=== PATIENT | female | born 1975 | race Caucasian/White ===

== ENCOUNTER 2017-03-15 09:12 | Inpatient (IN) ==
[2017-03-15] MEDS ORDERED: LIDOCAINE 1% (10mg/ml) 2mL INJ PF SDV ID ONE (09:34)
[2017-03-15] MEDS ORDERED: MIDAZOLAM 2mg/2ml INJECTION ONE (10:29)
[2017-03-15] MEDS ORDERED: ROCURONIUM 50 MG/5 ML INJECTION IVP ONE ×2 (10:29→11:49)
[2017-03-15] MEDS ORDERED: SUGAMMADEX 200mg/2ml INJECTION IVP ONE (10:29)
[2017-03-15] MEDS ORDERED: ONDANSETRON 4 MG/2 ML INJECTION ONE (10:29)
[2017-03-15] MEDS ORDERED: GLYCOPYRROLATE 0.4 MG/2 ML INJECTION ONE (10:29)
[2017-03-15] MEDS ORDERED: FentaNYL 250 MCG/5 ML INJECTION ONE (10:29)
[2017-03-15] MEDS ORDERED: PROPOFOL 20 ML ONE (10:30)
[2017-03-15] MEDS ORDERED: LIDOCAINE 2% (100mg/5mL) PF 5ml vl ONE (10:30)
[2017-03-15] MEDS: LR 1,000 ML IV SCH ×3 (10:40→18:35)
--- NOTE | 2017-03-15 10:41 | Anesthesia Preoperative Report ---
Anesthesia Preoperative Record - Date and Time Date: 03/15/17 NPO Since Date: 03/14/17 NPO Since Time: 00:00 Allergies/Adverse Reactions: Allergies Allergy/AdvReac Type Severity Reaction Status Date / Time No Known Allergies Allergy Verified 03/15/17 10:03 - Vital Signs Vital Signs: Temp Pulse BP Pulse Ox 98.2 F 89 147/77 H 96 03/15/17 09:39 03/15/17 09:39 03/15/17 09:39 03/15/17 09:39 Height and Weight: Height 1.7 m Weight 109.5 kg Body Mass Index 37.8 - Medications Inpatient Medications: Current Medications Lactated Ringer's (Lactated Ringers) 1,000 mls @ 100 mls/hr IV .Q10H LEON Home Medications: Home Medications Medication Instructions Recorded Confirmed Type Acetaminophen [Non-Aspirin Pain 1 - 2 tab PO 6XD PRN 03/14/17 03/15/17 History Relief] Buspirone [Buspar] 10 mg PO DAILY 03/14/17 03/15/17 History Melatonin/Pyridoxine HCl (B6) 1 each PO HS 03/14/17 03/15/17 History [Melatonin 3 mg Tablet] Meloxicam 15 mg PO DAILY 03/14/17 03/15/17 History Montelukast [Singulair] 10 mg PO HS 03/14/17 03/15/17 History Multivitamin [One Daily 1 each PO DAILY 03/14/17 03/15/17 History Multivitamin] PARoxetine HCl [Paxil Cr] 2 tab PO DAILY 03/14/17 03/15/17 History - Medical History Cardiovascular: Reports: Hypertension (preop) Gastrointestional: Reports: Morbid Obesity (obese) - Surgical History HEENT Surgeries: Reports: Nose Surgery (sinus surgery-right side), Other (6 teeth pulled) GI Surgery/Treatments: Reports: Appendectomy, Cholecystectomy Musculoskeletal Surgery/Tx: Reports: Carpal Tunnel Release (janelle.) - Social History Smoking Status: Never smoker Hx Chewing Tobacco Use: No Second Hand Exposure: No - Pertinent Findings Laboratory: CBC and BMP 03/15/17 09:47 03/15/17 09:47 BMP 03/15/17 09:47 Sodium 142 Potassium 4.3 Chloride 104 Carbon Dioxide 26 BUN 10.0 Creatinine 0.6 L Glucose 94 Calcium 9.1 - Physical Exam Respiratory Exam: Present: lungs clear Cardiovascular Exam: Present: regular rate and rhythm - Airway Assessment Mallampati Score: III TMD: 3 Fingerbreadths Neck Extension: good Teeth: chipped teeth/crowns Overall Assessment: no airway concerns - ASA ASA Score: 2 - Plan Plan: GA with TAP block Anesthesia: General Inhalation Gases Regional/Trunk Block: Transverse Abdominal Plane - Discussion Discussion: Discussed risks/options/alternatives of anesthesia and questions answered. Patient consents. Nursing pain assessment noted. Attestation Statement: Prior to the delivery of any anesthetic medication, I examined the patient, developed the plan, obtained the patient's consent and discussed the risk and benefits of the procedure with the patient/guardian. - Additional Information Seen by Anesthesia: Yes
[2017-03-15] MEDS ORDERED: FAMOTIDINE PREMIX 20 MG/50 ML BAG IV ONE (11:10)
[2017-03-15] MEDS: CEFOXITIN 2 GM in NS 100 ML IV ONE (11:19)
[2017-03-15] MEDS ORDERED: ALBUTEROL HFA INHALER 8gm ORAL INH ONE (12:09)
[2017-03-15] MEDS ORDERED: PHENYLEPHRINE INJ 10 MG/ML VIAL ONE (12:49)
[2017-03-15] MEDS ORDERED: EPHEDRINE 50mg/ml INJECTION ONE (12:49)
[2017-03-15] MEDS ORDERED: DEXAMETHASONE 4 MG/ML INJECTION ONE (12:49)
[2017-03-15] MEDS ORDERED: HYDROMORPHONE 2 MG/ML INJECTION IVP PRN (12:50)
[2017-03-15] MEDS ORDERED: SCOPOLAMINE 1.5 MG PATCH TD ONE (12:51)
[2017-03-15] MEDS ORDERED: HYDROMORPHONE 2 MG/ML INJECTION ONE (13:09)
[2017-03-15] MEDS ORDERED: CEFOXITIN 1 GM ONE (14:13)
[2017-03-15] MEDS ORDERED: CEFOXITIN IV ONE (14:30)
[2017-03-15] MEDS ORDERED: NS IV ONE (14:30)
--- NOTE | 2017-03-15 14:45 | OB/GYN Procedure Note ---
WELFARE INTERVIEWER Operative Note Date of Operation: 03/15/17 Preoperative Diagnosis: Pelvic Pain Enlarged fibroid uterus Postoperative Diagnosis: Same as Preoperative - Procedure Hysterectomy: JENNA Salpingectomy: Bilateral Salpingectomy Surgeon: Annamarie Pedersen MD Ecd: Erik Plasencia MD Anesthesia Provider: Reyumndo Sanders CRNA Anesthesia Type: general Complications: None Estimated Blood Loss:: 250 cc
[2017-03-15] MEDS ORDERED: ONDANSETRON 4 MG/2 ML INJECTION IVP PRN (14:46)
--- NOTE | 2017-03-15 14:54 | Operative Note ---
Operative Report-Blank Operative Report: Abdominal Hysterectomy Preoperative Diagnosis: 1. Symptomatic uterine fibroids 2. Enlarged uterus Postoperative Diagnosis: 1. Same as pre-operative diagnosis Operation Performed: 1. Examination under anesthesia 2. Total abdominal hysterectomy 3. Bilateral salpingectomy 4. Mirena intra-uterine device removal Surgeon: Annamarie Pedersen MD Recreation Facility Attendant: Erik Plasencia MD Anesthesia: general endotracheal anesthesia Estimated Blood Loss: 250 cc Intraoperative IVF: 1800 cc Urine Output: 400 cc Drains: robison catheter to gravity Pathology Specimens: 1. Bilateral fallopian tubes 2. Uterine corpus 3. Uterine cervix 4. Mirena IUD Complications: none Disposition and Condition: to the PACU in good condition then admitted to the hospital Findings: 1. 15 week size, mobile, diffusely enlarged uterus on EUA 2. Fibroid uterus with (submucosal) fibroid at laparotomy 3. Normal right and left adnexa, 4. Appendix and gallbladder surgically absent from prior procedures 5. Palpable normal liver and kidneys Statement of Medical Necessity: 41 year old A1 with a history of symptomatic uterine fibroids and menorrhagia who had previously been managed with medical therapy through Mirena intra-uterine device. Her bleeding symptoms were well controlled, however, patient continued to have bulk symptoms. The procedural risks, benefits, indications and alternatives were reviewed with the patient. She desired definitive surgical management and declined further medical management of her condition. Description of Operation: After obtaining informed consent, the patient was taken to the operating room where satisfactory general endotracheal anesthesia was established. The patient was placed in a supine position insuring proper positioning and cushioning to avoid injury. An examination under anesthesia was performed with the findings noted above. She was prepped and draped in the usual sterile fashion. A robison catheter was placed. A Pfannenstiel incision was made from 3 cm above the pubic symphysis and carried down to the fascia with the scalpel. Hemostasis was accomplished using Bovie cautery. The fascia was incised in the midline and the incision extended laterally using Goodwin scissors. The rectus muscles were in the midline. The peritoneum was identified, elevated with hemostats and sharply entered. The peritoneal incision was extended superiorly and inferiorly down to the dome of the bladder using Metzenbaum scissors. The peritoneal cavity was explored with the findings noted above. An Billy - Golden retractor was placed and the bowel was packed into the upper abdomen using four moist laparotomy sponges. Two Pean clamps were used to grasp the uterine cornua for retraction. The right round ligament was transfixed with 0 Vicryl suture and incised using Bovie cautery. The retroperitoneal space was entered and the broad ligament incised posteriorly. The space was dissected bluntly and the ureter identified. With the ureter well out of the operative field, a window was made in the posterior leaf of the broad ligament under the utero-ovarian ligament. A Zeppelin clamp was placed across the utero-ovarian ligament and fallopian tube which were transected and doubly ligated with a free-tie and fore -and-aft stitch of 0 Vicryl suture. The pedicle was hemostatic. The anterior leaf of the broad ligament was incised anteriorly along the bladder reflection to the midline to create the bladder flap. The bladder was bluntly dissected off the lower uterine segment and cervix. The same procedure beginning with identification and incision of the round ligament was performed on the contra-lateral side. With the ureter well out of the operative field, a window was made in the posterior leaf of broad ligament inferior to the utero-ovarian ligament which was clamped with a Zepellin clamp and transected. The pedicle was doubly ligated with a free-tie and [id number] stitch of 0 Vicryl suture and was hemostatic. Care was taken to free the fallopian tubes on each side to allow for concurrent salpingectomy. The uterine vessels bilaterally were skeletonized, clamped with curved Zaire clamps, back-clamped with Pean clamps, transected and suture ligated with 0 Vicryl suture. Hemostasis was noted. Straight Zaire clamps were used to serially clamp the parametrial tissue bilaterally proceeding inferiorly. All pedicles were transected and suture ligated in a Zaire fashion with 0 Vicryl suture. Care was taken to incorporate the cardinal and uterosacral ligaments. Curved Zaire clamps were placed across the vagina just inferior to the external os of the cervix and the specimen was excised using Federico scissors. The cervix was intact, the Mirena IUD was noted to be inside the cervix and the specimens were sent to pathology. A 0 Vicryl [id number] suture was placed in the mid-cuff. The cuff was closed with separate 0 Vicryl sutures in a bilateral whip stitch over the clamps which were then removed and the sutures cinched tight. The vaginal cuff angles were closed with two separate Hoffmeister stitches of 0 Vicryl suture. Hemostasis was noted. The peritoneal cavity was copiously irrigated with warm saline. All pedicles were re-examined and remained hemostatic. The Billy Golden retractor and the four moist laparotomy sponges were removed. Counts were noted to be correct. The fascia was closed in a running fashion with two separate 0 Vicryl sutures to the midpoint. The subcutaneous tissue was irrigated and rendered hemostatic with the Bovie cautery and re-approximated with 3-0 Vicryl suture. The skin was closed 4-0 Monocryl in subcuticular fashion and a sterile dressing applied. The patient was returned to the dorsal supine position, extubated without difficulty and taken to the recovery room in stable condition. There were no anesthetic or surgical complications.
[2017-03-15] MEDS ORDERED: HYDROMORPHONE PCA 30mg/30ml VIAL IV PRN (15:47)
--- NOTE | 2017-03-15 15:47 | Anesthesia Procedure Note ---
Peripheral Nerve Blockade - Procedure Physician: Annamarie Pedersen MD Date: 03/15/17 Discussion: Discussed risks/options/alternatives of anesthesia and questions answered. Patient consents. Nursing pain assessment noted. Block Start: 14:05 Block Stop: 14:40 Blocked Employed: TAP Block, Single Injection Indication: Post-Operative Pain Approach: Bilateral Sides Confirmed Position: Supine Patient: Consent, Risks/Benefits Discussed, Informed, Post Block Act. Discussed IV Sedation: No Midazolam (mg): 0 (post op in PACU) Initial Vital Signs: Temperature 98.2 F 03/15/17 09:39 Temperature Source Oral 03/15/17 09:39 Pulse Rate 89 03/15/17 09:39 Blood Pressure 147/77 H 03/15/17 09:39 Blood Pressure Mean 100 03/15/17 09:39 Blood Pressure Position Sitting 03/15/17 09:39 Pulse Oximetry 96 03/15/17 09:39 Oxygen Delivery Method 03/15/17 09:39 Post Vital Signs: Temp Pulse Resp BP Pulse Ox 98.9 F 100 22 136/65 95 03/15/17 15:20 03/15/17 15:35 03/15/17 15:35 03/15/17 15:35 03/15/17 15:35 Ultrasound Used?: Yes - Nerve Simulator Muscle Response: No Paresthesia/Pain: None - Injectate Ropivacaine (%): 0.2 Ropivacaine (mL): 30 (total 60 ml bilateral) Was Epi 1:200,000 Used?: No Injection: Injection made incrementally with constant monitoring and aspiration every ml
--- NOTE | 2017-03-15 15:50 | Anesthesia Postoperative Note ---
- Date and Time Date: 03/15/17 Time: 15:49 - Status Patient Participated in Evaluation: Patient Participated in Person Vital Signs: Temp Pulse Resp BP Pulse Ox 98.9 F 95 16 138/68 94 03/15/17 15:20 03/15/17 15:45 03/15/17 15:45 03/15/17 15:45 03/15/17 15:45 Respiratory Function: Airway Patent, Regular Respirations Cardiovascular Function: Regular Pulse Mental Status: Alert and Oriented Pain Intensity: 0 (denies pain to abdomen, but 6 on lower back) Hydration: IV Infusing Complications During Recover: None Apparent - Follow-Up Instructions Instructions: Per Surgeon
--- NOTE | 2017-03-15 17:48 | OB/GYN Procedure Note ---
SUSTAINABILITY COACH Postop Note Free Text - Date Date: 03/15/17 - Progress Note Progress Note: SUSTAINABILITY COACH Post-op Check Patient is resting comfortably. Her pain is well controlled with WELT TREATER. Mildly nauseous, does not feel very hungry, just a bit tired. AFVSS. NAD Abd soft, appropriate post-op discomfort, no rebound/guarding, clean dressing over Pfannenstiel incision Ext with SCDs in place POD#1 s/p JENNA with bilateral salpingectomy with 250 cc EBL, doing well immediately post-op. Ok to start clear liquid diet if patient tolerates. Continue WELT TREATER for pain control overnight. Keep robison catheter until tomorrow AM, strict I/Os. Check H/H at 2000. Continue inpatient care. Questions solicited and answered.
[2017-03-15] MEDS ORDERED: NALOXONE 0.4 MG/ML INJECTION IVP PRN (18:06)
[2017-03-15] MEDS ORDERED: METOCLOPRAMIDE 10mg/2ml INJECTION IVP PRN (18:29)
[2017-03-16] MEDS: LR 1,000 ML IV SCH ×2 (02:52→11:21)
[2017-03-16] MEDS ORDERED: HYDROMORPHONE 2 MG/ML INJECTION IVP PRN (10:22)
[2017-03-16] MEDS ORDERED: DiphenhydrAMINE 25 MG CAPSULE PO PRN (10:22)
--- NOTE | 2017-03-16 10:26 | OB/GYN Progress Note ---
TRACER BULLET SECTION SUPERVISOR Postop Prog Note Free Text - Date Date: 03/16/17 - Progress Note TRACER BULLET SECTION SUPERVISOR Progress Note Patient is feeling well this morning, she has tolerated clear liquids and her nausea has subsided. Her pain is well controlled. She has gotten up to move in the chair. She has not passed flatus yet. AFVSS NAD RRR CTAB Abd soft, appropriate post-op discomfort, no rebound/guarding, Pfannenstiel incision without erythema / drainage / induration Chel[place] dry, robison cath draining clear urine Ext no edema, SCDs in place Hgb: 13.1 (pre-op) --> 12.7 (POD0) --> 12.0 (POD1) 41 year old now POD#1 s/p JENNA / bilateral salpingectomy / Mirena IUD removal with 250 cc EBL for enlarged fibroid uterus causing bulk symptoms. --heme: acute blood loss anemia: no evidence of ongoing bleeding on exam, expected drop in hgb now stable. --pain: well controlled, discontinue Dilaudid POLICY WRITER and transition to po pain meds ([place] and Ibuprofen prn) with IV Dilaudid for breakthrough pain. --: remove robison catheter this AM, continue strict I/Os. --FEN/GI: advance to regular diet, discontinue IVFs, anti-emetics prn. --prophylaxis: SCDs while in bed, early ambulation, IS. --continue inpatient care. --questions solicited and answered.
[2017-03-16] MEDS: CEFOXITIN 2 GM in NS 100 ML IV ONE (10:40)
[2017-03-16] MEDS: HYDROCODONE/APAP 7.5 MG/325 MG TABLET PO PRN ×2 (11:59→17:49)
[2017-03-16] MEDS: IBUPROFEN 800 MG TABLET PO PRN ×2 (13:46→22:15)
[2017-03-16] MEDS ORDERED: PAROXETINE HCL PO SCH (14:17)
[2017-03-16] MEDS: BUSPIRONE 10 MG TABLET PO SCH (15:00)
[2017-03-16] MEDS: PAROXETINE 40 MG TABLET PO SCH (15:00)
[2017-03-16] MEDS: PAROXETINE 10 MG TABLET PO SCH (15:01)
[2017-03-16] MEDS ORDERED: MONTELUKAST 10 MG TABLET PO SCH (22:00)
[2017-03-16] MEDS ORDERED: [UNRECOGNIZED DRUG - OTHER] PO SCH (22:00)
[2017-03-16] MEDS ORDERED: MELATONIN 1 MG TABLET PO PRN (22:00)
[2017-03-16] MEDS ORDERED: MELATONIN PO SCH (22:00)
[2017-03-16] MEDS ORDERED: PYRIDOXINE HCL PO SCH (22:00)
[2017-03-17] MEDS: HYDROCODONE/APAP 7.5 MG/325 MG TABLET PO PRN ×4 (00:23→14:44)
[2017-03-17] MEDS: BUSPIRONE 10 MG TABLET PO SCH (08:25)
[2017-03-17] MEDS: PAROXETINE 10 MG TABLET PO SCH (08:25)
[2017-03-17] MEDS: PAROXETINE 40 MG TABLET PO SCH (08:25)
--- NOTE | 2017-03-17 08:31 | OB/GYN Progress Note ---
BOX PACKER Postop Prog Note Free Text - Date Date: 03/17/17 - Progress Note BOX PACKER Progress Note Patient is feeling better today, pain is adequately controlled with current pain medication regimen. +tolerating po. +voiding without difficulty. + ambulating. AFVSS Abd soft, appropriate post-op discomfort, no rebound/guarding, Pfannenstiel incision without erythema / drainage / induration Ext no edema Hgb: 13.1 (pre-op) --> 12.7 (POD0) --> 12.0 (POD1) 41 year old now POD#2 s/p JENNA / bilateral salpingectomy / Mirena IUD removal with 250 cc EBL for enlarged fibroid uterus causing bulk symptoms, doing well, met all post-op goals. --heme: acute blood loss anemia: no evidence of ongoing bleeding on exam, expected drop in hgb now stable. --pain: well controlled, continue po pain meds ([place] and Ibuprofen prn). --FEN/GI: regular diet, no IVFs, anti-emetics prn. --prophylaxis: SCDs while in bed, ambulation, IS. --questions solicited and answered. --anticipate discharge this PM. Follow up in clinic for incision check in 1 week.
[2017-03-17] MEDS: IBUPROFEN 800 MG TABLET PO PRN ×2 (09:28→17:48)
--- NOTE | 2017-03-17 13:23 | Discharge Summary ---
Discharge Plan - Med Rec/Dispo Prescriptions: New Hydrocodone/APAP 7.5/325 [[place] 7.5/325] 1 tab PO Q4-6HR PRN #30 PRN Reason: Pain Ibuprofen [Motrin] 800 mg PO Q8H PRN #60 PRN Reason: Pain Continue Acetaminophen [Non-Aspirin Pain Relief] 1 - 2 tab PO 6XD PRN PRN Reason: Pain Montelukast [Singulair] 10 mg PO HS Meloxicam 15 mg PO DAILY PARoxetine HCl [Paxil] 40 mg PO DAILY Paroxetine [Paxil] 10 mg PO DAILY Melatonin 3 mg Tablet 3 mg PO HS PRN PRN Reason: Sleep Multivitamin [One Daily Multivitamin] 1 each PO DAILY Buspirone [Buspar] 10 mg PO DAILY - Disposition 01 Discharged Home, Self-Care
== END 2017-03-17 18:02 | disposition home or self-care (01) | DRG 743 ==
LOC: SRG 09:12
PROVIDERS: ADMIT Obstetrics & Gynecology; ATTEND Obstetrics & Gynecology